=== PATIENT | female | born 1935 | race Caucasian/White ===

== ENCOUNTER → 2017-09-12 | Outpatient (CLI) | payer OTHER, SELFPAY ==
[~2017-09-12] MED LIST: ABAT250V; ACET325 PO; ALEN70 PO; AMLO10 PO; AMLO5 PO; AMOX500 PO; ASCO500 PO; ASPI81CH PO; Armour Thyroid15 MG PO; CALC.25 PO; CALCAVITD PO; CENTRUM COMPLE1 EACH PO; CILO100 PO; CITRACAL SOFT1 EACH PO; CLAR250 PO; Cipro500 MG PO; DOCU100 PO; FERR325 PO; FERSU90EL UD; FURO40 PO; Flagyl500 MG PO; HYDR10 PO; LOPE2C PO; MAGOXI400 PO; METO25ER PO; MOTION RELIEF25 MG PO; NIFE60ER PO; OMEPRAZOLE MAGN20 MG PO; ONDA4 PO; Omeprazole20 M1; Omeprazole20 M1 PO; PANT40 PO; PROBIOTIC; ROPI1 PO; SACC250C PO; SODBIC650 PO; Simvastatin40 MG PO; Synthroid25 MCG PO; VITAMIN D22000 UNIT PO; VITAMIN D35000 UNI1 PO; Vitamin B Comple1 EA PO
[2017-09-12 11:48] LABS: BASOPHILS ABSOLUTE AUTO 0.04 K/mm3 (0.00-0.23); BASOPHILS PERCENT AUTO 1 % (0-2); EOSINOPHILS ABSOLUTE AUTO 0.29 K/mm3 (0.00-0.68); EOSINOPHILS PERCENT AUTO 5 % (0-6); Hematocrit 32.5 % (33.0-51.0); Hemoglobin 10.6 g/dL (11.5-16.0); IMMATURE GRAN ABSOLUTE AUTO 0.01 K/mm3 (0.00-0.10); IMMATURE GRAN PERCENT AUTO 0 % (0-1); LYMPHOCYTES ABSOLUTE AUTO 0.57 K/mm3 (0.84-5.20); LYMPHOCYTES PERCENT AUTO 9 % (21-46); MONOCYTES ABSOLUTE AUTO 0.35 K/mm3 (0.16-1.47); MONOCYTES PERCENT AUTO 6 % (4-13); Mean Corpuscular HGB 30.8 pg (26.0-34.0); Mean Corpuscular HGB Conc 32.6 g/dL (31.5-36.5); Mean Corpuscular Volume 95 fL (80-100); Mean Platelet Volume 10.9 fL (9.1-12.4); NEUTROPHILS ABSOLUTE AUTO 5.14 K/mm3 (1.96-9.15); NEUTROPHILS PERCENT AUTO 80 % (41-73); Platelet Count 187 K/mm3 (150-400); RDW Coefficient Variation 14.4 % (11.7-14.2); RDW Standard Deviation 49.2 fL (35.1-46.3); Red Blood Cell Count 3.44 M/mm3 (3.80-5.20)
[2017-09-13 12:43] LABS: Percent Saturation 21.7 % (15.0-50.0)
== END | disposition home or self-care (01) ==
LOC: LAB EV 11:41
PROVIDERS: Physician Assistant
DX: D64.9 Anemia, unspecified (principal); R04.0 Epistaxis
CPT/HCPCS: 83540; 83550; 85025

== ENCOUNTER 2017-12-23 00:58 | Emergency (ER) | payer OTHER, SELFPAY ==
[~2017-12-23] VITALS: Ht 165.1 cm; Wt 59.0 kg
[~2017-12-23 00:58] MED LIST changes: -ABAT250V; -CALC.25 PO; -Cipro500 MG PO; -DOCU100 PO; -Flagyl500 MG PO; -HYDR10 PO; -LOPE2C PO; -METO25ER PO; -OMEPRAZOLE MAGN20 MG PO; -PROBIOTIC; -SACC250C PO; -VITAMIN D35000 UNI1 PO
[2017-12-23 02:28] LABS: BASOPHILS ABSOLUTE AUTO 0.03 K/mm3 (0.00-0.23); BASOPHILS PERCENT AUTO 0 % (0-2); EOSINOPHILS ABSOLUTE AUTO 0.11 K/mm3 (0.00-0.68); EOSINOPHILS PERCENT AUTO 1 % (0-6); Hematocrit 31.3 % (33.0-51.0); Hemoglobin 10.3 g/dL (11.5-16.0); IMMATURE GRAN PERCENT AUTO 1 % (0-1); LYMPHOCYTES ABSOLUTE AUTO 0.62 K/mm3 (0.84-5.20); LYMPHOCYTES PERCENT AUTO 6 % (21-46); MONOCYTES ABSOLUTE AUTO 0.55 K/mm3 (0.16-1.47); MONOCYTES PERCENT AUTO 5 % (4-13); Mean Corpuscular HGB 30.7 pg (26.0-34.0); Mean Corpuscular HGB Conc 32.9 g/dL (31.5-36.5); Mean Corpuscular Volume 93 fL (80-100); NEUTROPHILS ABSOLUTE AUTO 8.93 K/mm3 (1.96-9.15); NEUTROPHILS PERCENT AUTO 86 % (41-73); RDW Coefficient Variation 12.8 % (11.7-14.2); RDW Standard Deviation 43.4 fL (35.1-46.3); Red Blood Cell Count 3.36 M/mm3 (3.80-5.20); White Blood Cell Count 10.34 K/mm3 (4.00-11.30)
[2017-12-23 02:29] LABS: Mean Platelet Volume 11.9 fL (9.1-12.4); Platelet Count 147 K/mm3 (150-400)
[2017-12-23 03:23] LABS: Source, Urine Clean Catch
[2017-12-23 03:24] LABS: Bilirubin, Urine Neg (Neg); Blood, Urine 1+ (Neg); Glucose Qualitative, Urine Neg (Neg); Ketones, Urine Neg (Neg); Leukocyte Esterase, Urine Neg (Neg); Nitrite, Urine Neg (Neg); Protein, Urine 4+ (Neg); Urobilinogen, Urine NORM (Normal)
[2017-12-23 03:25] LABS: Appearance, Urine Clear (Clear); Color, Urine Yellow (P-Yellow)
[2017-12-23 03:42] LABS: Albumin, Blood 2.4 g/dL (3.4-5.0); Albumin/Globulin Ratio 0.6 (0.8-1.8); Bilirubin, Total 0.2 mg/dL (0.1-1.0); Bun/Creatinine Ratio 12.9 (12.0-20.0); Calcium, Blood 8.2 mg/dL (8.5-10.1); Creatinine, Blood 3.42 mg/dL (0.40-1.00); Potassium, Blood 4.4 mmol/L (3.5-5.5); Total Protein, Blood 6.4 g/dL (6.4-8.2)
[2017-12-23 03:44] LABS: Bacteria Not Seen /hpf; Red Blood Cells, Urine 0-2 /hpf (0-2); Squamous Epithelial Cells Few /hpf (Few); White Blood Cells, Urine 0-2 /hpf (0-5)
[2017-12-23] MEDS ORDERED: Flagyl500 MG PO (04:45)
[2017-12-23] MEDS ORDERED: Cipro500 MG PO (04:45)
== END 2017-12-23 06:09 | disposition home or self-care (01) ==
LOC: ER 00:58
PROVIDERS: Emergency Medicine
DX: K57.32 Diverticulitis of large intestine without perforation or abscess without bleeding (principal); Z79.899 Other long term (current) drug therapy; Z79.82 Long term (current) use of aspirin; I12.9 Hypertensive chronic kidney disease with stage 1 through stage 4 chronic kidney disease, or unspecified chronic kidney disease; N18.4 Chronic kidney disease, stage 4 (severe); D64.9 Anemia, unspecified
CPT/HCPCS: 74176; 80053; 81001; 83690; 85025; 93005; 93010; 96365; 96375; 99284; J0744

== ENCOUNTER 2018-02-16 13:44 | Inpatient (IN) | payer OTHER, SELFPAY ==
[~2018-02-16] VITALS: Ht 165.1 cm; Wt 57.6 kg
[~2018-02-16 13:44] MED LIST changes: +Cipro500 MG PO; +Flagyl500 MG PO
[2018-02-16 15:22] LABS: Albumin, Blood 2.1 g/dL (3.4-5.0); Albumin/Globulin Ratio 0.7 (0.8-1.8); Bilirubin, Total 0.1 mg/dL (0.1-1.0); Calcium, Blood 7.4 mg/dL (8.5-10.1); Creatinine, Blood 3.95 mg/dL (0.40-1.00); Globulin, Blood 3.2 g/dL (2.2-4.0); Potassium, Blood 4.3 mmol/L (3.5-5.5); Total Protein, Blood 5.3 g/dL (6.4-8.2); Troponin I 0.018 ng/mL (0.000-0.040)
[2018-02-16 15:45] LABS: BASOPHILS ABSOLUTE AUTO 0.03 K/mm3 (0.00-0.23); BASOPHILS PERCENT AUTO 0 % (0-2); EOSINOPHILS ABSOLUTE AUTO 0.15 K/mm3 (0.00-0.68); EOSINOPHILS PERCENT AUTO 2 % (0-6); Hematocrit 22.3 % (33.0-51.0); Hemoglobin 6.9 g/dL (11.5-16.0); IMMATURE GRAN ABSOLUTE AUTO 0.03 K/mm3 (0.00-0.10); IMMATURE GRAN PERCENT AUTO 0 % (0-1); LYMPHOCYTES ABSOLUTE AUTO 0.77 K/mm3 (0.84-5.20); LYMPHOCYTES PERCENT AUTO 8 % (21-46); MONOCYTES ABSOLUTE AUTO 0.31 K/mm3 (0.16-1.47); MONOCYTES PERCENT AUTO 3 % (4-13); Mean Corpuscular HGB 30.1 pg (26.0-34.0); Mean Corpuscular HGB Conc 30.9 g/dL (31.5-36.5); Mean Corpuscular Volume 97 fL (80-100); Mean Platelet Volume 10.8 fL (9.1-12.4); NEUTROPHILS ABSOLUTE AUTO 7.86 K/mm3 (1.96-9.15); NEUTROPHILS PERCENT AUTO 86 % (41-73); Platelet Count 186 K/mm3 (150-400); RDW Coefficient Variation 15.5 % (11.7-14.2); RDW Standard Deviation 53.8 fL (35.1-46.3); Red Blood Cell Count 2.29 M/mm3 (3.80-5.20); White Blood Cell Count 9.15 K/mm3 (4.00-11.30)
[2018-02-16] MEDS ORDERED: HYDR10 PO (19:35)
[2018-02-16] MEDS ORDERED: CALC.25 PO (19:36)
[2018-02-17 01:34] LABS: Hematocrit 22.2 % (33.0-51.0)
[2018-02-17 02:43] LABS: Adenovirus F 40/41 Not Detected (NOT DETECT); Astrovirus Not Detected (NOT DETECT); Campylobacter Sp Not Detected (NOT DETECT); Cryptosporidium Not Detected (NOT DETECT); Cyclospora Cayetanensis Not Detected (NOT DETECT); E. Coli O157 Not Detected (NOT DETECT); Entamoeba Histolytica Not Detected (NOT DETECT); Enteroaggregative E. coli-EAEC Not Detected (NOT DETECT); Enteropathogenic E. coli-EPEC Not Detected (NOT DETECT); Enterotoxigenic E. coli-ETEC Not Detected (NOT DETECT); Giardia Lamblia Not Detected (NOT DETECT); Norovirus GI/GII Not Detected (NOT DETECT); Plesiomonas Shigelloides Not Detected (NOT DETECT); Rotavirus A Not Detected (NOT DETECT); Salmonella Sp Not Detected (NOT DETECT); Sapovirus Not Detected (NOT DETECT); Shiga Toxin-prod E. coli-STEC Not Detected (NOT DETECT); Shigella/Enteroin E. coli-EIEC Not Detected (NOT DETECT); Vibrio Cholerae Not Detected (NOT DETECT); Vibrio Sp Not Detected (NOT DETECT); Yersinia Enterocolitica Not Detected (NOT DETECT)
[2018-02-17 02:48] LABS: Stool Occult Bld Immuno 1 Positive (NEGATIVE)
[2018-02-17 03:10] LABS: BASOPHILS ABSOLUTE AUTO 0.03 K/mm3 (0.00-0.23); BASOPHILS PERCENT AUTO 1 % (0-2); EOSINOPHILS ABSOLUTE AUTO 0.33 K/mm3 (0.00-0.68); EOSINOPHILS PERCENT AUTO 5 % (0-6); Hematocrit 20.3 % (33.0-51.0); Hemoglobin 6.6 g/dL (11.5-16.0); IMMATURE GRAN ABSOLUTE AUTO 0.03 K/mm3 (0.00-0.10); IMMATURE GRAN PERCENT AUTO 1 % (0-1); LYMPHOCYTES ABSOLUTE AUTO 1.16 K/mm3 (0.84-5.20); LYMPHOCYTES PERCENT AUTO 19 % (21-46); MONOCYTES PERCENT AUTO 6 % (4-13); Mean Corpuscular HGB 31.1 pg (26.0-34.0); Mean Corpuscular HGB Conc 32.5 g/dL (31.5-36.5); Mean Corpuscular Volume 96 fL (80-100); Mean Platelet Volume 10.5 fL (9.1-12.4); NEUTROPHILS ABSOLUTE AUTO 4.27 K/mm3 (1.96-9.15); NEUTROPHILS PERCENT AUTO 69 % (41-73); Platelet Count 143 K/mm3 (150-400); RDW Coefficient Variation 15.6 % (11.7-14.2); RDW Standard Deviation 51.7 fL (35.1-46.3); Red Blood Cell Count 2.12 M/mm3 (3.80-5.20); White Blood Cell Count 6.22 K/mm3 (4.00-11.30)
[2018-02-17 03:29] LABS: Bun/Creatinine Ratio 17.6 (12.0-20.0); Calcium, Blood 6.9 mg/dL (8.5-10.1); Creatinine, Blood 3.75 mg/dL (0.40-1.00); Troponin I 0.039 ng/mL (0.000-0.040)
[2018-02-17 08:28] LABS: Hematocrit 23.8 % (33.0-51.0); Hemoglobin 7.9 g/dL (11.5-16.0)
[2018-02-17] MEDS ORDERED: ABAT250V (23:08)
[2018-02-17] MEDS ORDERED: VITAMIN D35000 UNI1 PO (23:08)
[2018-02-17] MEDS ORDERED: PROBIOTIC (23:11)
[2018-02-18 04:18] LABS: BASOPHILS ABSOLUTE AUTO 0.02 K/mm3 (0.00-0.23); BASOPHILS PERCENT AUTO 1 % (0-2); EOSINOPHILS PERCENT AUTO 9 % (0-6); Hematocrit 23.5 % (33.0-51.0); Hemoglobin 7.8 g/dL (11.5-16.0); IMMATURE GRAN ABSOLUTE AUTO 0.01 K/mm3 (0.00-0.10); IMMATURE GRAN PERCENT AUTO 0 % (0-1); LYMPHOCYTES ABSOLUTE AUTO 0.72 K/mm3 (0.84-5.20); LYMPHOCYTES PERCENT AUTO 17 % (21-46); MONOCYTES ABSOLUTE AUTO 0.29 K/mm3 (0.16-1.47); MONOCYTES PERCENT AUTO 7 % (4-13); Mean Corpuscular HGB 31.2 pg (26.0-34.0); Mean Corpuscular HGB Conc 33.2 g/dL (31.5-36.5); Mean Corpuscular Volume 94 fL (80-100); Mean Platelet Volume 10.6 fL (9.1-12.4); NEUTROPHILS ABSOLUTE AUTO 2.91 K/mm3 (1.96-9.15); NEUTROPHILS PERCENT AUTO 67 % (41-73); Platelet Count 120 K/mm3 (150-400); RDW Coefficient Variation 16.8 % (11.7-14.2); RDW Standard Deviation 56.3 fL (35.1-46.3); White Blood Cell Count 4.35 K/mm3 (4.00-11.30)
[2018-02-18 16:22] LABS: Adenovirus F 40/41 Not Detected (NOT DETECT); Astrovirus Not Detected (NOT DETECT); Campylobacter Sp Not Detected (NOT DETECT); Cryptosporidium Not Detected (NOT DETECT); Cyclospora Cayetanensis Not Detected (NOT DETECT); E. Coli O157 Not Detected (NOT DETECT); Entamoeba Histolytica Not Detected (NOT DETECT); Enteroaggregative E. coli-EAEC Not Detected (NOT DETECT); Enteropathogenic E. coli-EPEC Not Detected (NOT DETECT); Enterotoxigenic E. coli-ETEC Not Detected (NOT DETECT); Giardia Lamblia Not Detected (NOT DETECT); Norovirus GI/GII Not Detected (NOT DETECT); Plesiomonas Shigelloides Not Detected (NOT DETECT); Rotavirus A Not Detected (NOT DETECT); Salmonella Sp Not Detected (NOT DETECT); Sapovirus Not Detected (NOT DETECT); Shiga Toxin-prod E. coli-STEC Not Detected (NOT DETECT); Shigella/Enteroin E. coli-EIEC Not Detected (NOT DETECT); Vibrio Cholerae Not Detected (NOT DETECT); Vibrio Sp Not Detected (NOT DETECT); Yersinia Enterocolitica Not Detected (NOT DETECT)
[2018-02-18] MEDS ORDERED: LOPE2C PO (18:28)
[2018-02-18] MEDS ORDERED: OMEPRAZOLE MAGN20 MG PO (18:29)
[2018-02-18] MEDS ORDERED: SACC250C PO (18:29)
== END 2018-02-18 19:07 | disposition home or self-care (01) | DRG 378 ==
LOC: ER 13:44 → PCU 13:45
PROVIDERS: Emergency Medicine; Internal Medicine; Internal Medicine Endocrinology, Diabetes & Metabolism; Internal Medicine Gastroenterology; Student in an Organized Health Care Education/Training Program
PROC: 30233N1 Transfusion of Nonautologous Red Blood Cells into Peripheral Vein, Percutaneous Approach (ICD-10-PCS; 2018-02-16)
PROC: 0W3P8ZZ Control Bleeding in Gastrointestinal Tract, Via Natural or Artificial Opening Endoscopic (ICD-10-PCS; principal; 2018-02-17 21:30)
DX: K25.0 Acute gastric ulcer with hemorrhage (principal); D62 Acute posthemorrhagic anemia; N18.4 Chronic kidney disease, stage 4 (severe); I12.9 Hypertensive chronic kidney disease with stage 1 through stage 4 chronic kidney disease, or unspecified chronic kidney disease; E03.9 Hypothyroidism, unspecified; R19.7 Diarrhea, unspecified; E78.5 Hyperlipidemia, unspecified; I73.9 Peripheral vascular disease, unspecified; M81.0 Age-related osteoporosis without current pathological fracture; K21.9 Gastro-esophageal reflux disease without esophagitis; Z66 Do not resuscitate
CPT/HCPCS: 36415; 36430; 74176; 80048; 80053; 82274; 84484; 85014; 85018; 85025; 86850; 86870; 86900; 86901; 86922; 87507; 93005; 93010; 96374; 96375; 99285-25; C1751; J2250; J2405; J2543; J3010; J7030; J7120; P9016

== ENCOUNTER 2018-06-30 05:41 | Emergency (ER) | payer OTHER ==
[~2018-06-30] VITALS: Ht 165.1 cm; Wt 52.2 kg
[~2018-06-30 05:41] MED LIST changes: +ABAT250V; +CALC.25 PO; +DOCU100 PO; +HYDR10 PO; +LOPE2C PO; +METO25ER PO; +OMEPRAZOLE MAGN20 MG PO; +PROBIOTIC; +SACC250C PO; +VITAMIN D35000 UNI1 PO
[2018-06-30 06:42] LABS: BASOPHILS ABSOLUTE AUTO 0.04 K/mm3 (0.00-0.23); BASOPHILS PERCENT AUTO 1 % (0-2); EOSINOPHILS ABSOLUTE AUTO 0.26 K/mm3 (0.00-0.68); EOSINOPHILS PERCENT AUTO 6 % (0-6); Hematocrit 33.7 % (33.0-51.0); Hemoglobin 10.5 g/dL (11.5-16.0); IMMATURE GRAN ABSOLUTE AUTO 0.01 K/mm3 (0.00-0.10); IMMATURE GRAN PERCENT AUTO 0 % (0-1); LYMPHOCYTES ABSOLUTE AUTO 0.66 K/mm3 (0.84-5.20); LYMPHOCYTES PERCENT AUTO 14 % (21-46); MONOCYTES ABSOLUTE AUTO 0.39 K/mm3 (0.16-1.47); MONOCYTES PERCENT AUTO 9 % (4-13); Mean Corpuscular HGB 29.2 pg (26.0-34.0); Mean Corpuscular HGB Conc 31.2 g/dL (31.5-36.5); Mean Corpuscular Volume 94 fL (80-100); Mean Platelet Volume 11.4 fL (9.1-12.4); NEUTROPHILS ABSOLUTE AUTO 3.22 K/mm3 (1.96-9.15); NEUTROPHILS PERCENT AUTO 70 % (41-73); Platelet Count 117 K/mm3 (150-400); RDW Coefficient Variation 14.4 % (11.7-14.2); RDW Standard Deviation 49.6 fL (35.1-46.3); White Blood Cell Count 4.58 K/mm3 (4.00-11.30)
[2018-06-30 07:54] LABS: Albumin, Blood 2.5 g/dL (3.4-5.0); Albumin/Globulin Ratio 0.7 (0.8-1.8); Bilirubin, Total 0.3 mg/dL (0.1-1.0); Bun/Creatinine Ratio 6.6 (12.0-20.0); Calcium, Blood 8.4 mg/dL (8.5-10.1); Creatinine, Blood 3.91 mg/dL (0.40-1.00); Globulin, Blood 3.8 g/dL (2.2-4.0); Potassium, Blood 4.5 mmol/L (3.5-5.5); Total Protein, Blood 6.3 g/dL (6.4-8.2)
[2018-06-30] MEDS ORDERED: Norco 5-325 Ta1 EACH PO (08:21)
== END 2018-06-30 08:38 | disposition home or self-care (01) ==
LOC: ER 05:41
PROVIDERS: Emergency Medicine
DX: N20.0 Calculus of kidney (principal); I12.9 Hypertensive chronic kidney disease with stage 1 through stage 4 chronic kidney disease, or unspecified chronic kidney disease; N18.6 End stage renal disease; Z99.2 Dependence on renal dialysis; D64.9 Anemia, unspecified; E03.9 Hypothyroidism, unspecified; Z87.891 Personal history of nicotine dependence; Z79.899 Other long term (current) drug therapy
CPT/HCPCS: 36415; 74176; 80053; 83690; 85025; 96361; 96374; 96375; 99284-25; J2405; J3010; J7030

== ENCOUNTER → 2018-07-29 | Outpatient (CLI) | payer OTHER ==
[~2018-07-29] MED LIST changes: +Norco 5-325 Ta1 EACH PO
== END ==
LOC: LAB SHORT 17:55 → LAB EV 17:55
DX: N39.0 Urinary tract infection, site not specified (principal)
CPT/HCPCS: 87077; 87086; 87186

== ENCOUNTER 2018-08-09 10:17 | Emergency (ER) | payer OTHER ==
[~2018-08-09] VITALS: Ht 165.1 cm; Wt 53.1 kg
[2018-08-09] MEDS ORDERED: HYDR10 PO (10:41)
[2018-08-09] MEDS ORDERED: CALC.25 PO (10:41)
[2018-08-09] MEDS ORDERED: FURO40 PO (10:42)
[2018-08-09 10:49] LABS: BASOPHILS ABSOLUTE AUTO 0.03 K/mm3 (0.00-0.23); BASOPHILS PERCENT AUTO 1 % (0-2); EOSINOPHILS PERCENT AUTO 2 % (0-6); Hematocrit 33.1 % (33.0-51.0); Hemoglobin 10.4 g/dL (11.5-16.0); IMMATURE GRAN ABSOLUTE AUTO 0.02 K/mm3 (0.00-0.10); IMMATURE GRAN PERCENT AUTO 0 % (0-1); LYMPHOCYTES ABSOLUTE AUTO 0.65 K/mm3 (0.84-5.20); LYMPHOCYTES PERCENT AUTO 10 % (21-46); MONOCYTES ABSOLUTE AUTO 0.32 K/mm3 (0.16-1.47); MONOCYTES PERCENT AUTO 5 % (4-13); Mean Corpuscular HGB 29.7 pg (26.0-34.0); Mean Corpuscular HGB Conc 31.4 g/dL (31.5-36.5); Mean Corpuscular Volume 95 fL (80-100); Mean Platelet Volume 11.3 fL (9.1-12.4); NEUTROPHILS ABSOLUTE AUTO 5.27 K/mm3 (1.96-9.15); NEUTROPHILS PERCENT AUTO 82 % (41-73); Platelet Count 157 K/mm3 (150-400); RDW Coefficient Variation 15.1 % (11.7-14.2); RDW Standard Deviation 52.1 fL (35.1-46.3); White Blood Cell Count 6.39 K/mm3 (4.00-11.30)
[2018-08-09 11:12] LABS: Albumin, Blood 2.8 g/dL (3.4-5.0); Albumin/Globulin Ratio 0.8 (0.8-1.8); Bilirubin, Total 0.3 mg/dL (0.1-1.0); Bun/Creatinine Ratio 7.5 (12.0-20.0); Calcium, Blood 8.6 mg/dL (8.5-10.1); Creatinine, Blood 2.8 mg/dL (0.40-1.00); Globulin, Blood 3.6 g/dL (2.2-4.0); Potassium, Blood 4.5 mmol/L (3.5-5.5); Total Protein, Blood 6.4 g/dL (6.4-8.2); Troponin I 0.122 ng/mL (0.000-0.040)
== END 2018-08-09 13:30 | disposition home or self-care (01) ==
LOC: ER 10:17
PROVIDERS: Emergency Medicine
DX: I35.0 Nonrheumatic aortic (valve) stenosis (principal); R06.02 Shortness of breath; J81.1 Chronic pulmonary edema; I12.9 Hypertensive chronic kidney disease with stage 1 through stage 4 chronic kidney disease, or unspecified chronic kidney disease; N18.9 Chronic kidney disease, unspecified; J44.9 Chronic obstructive pulmonary disease, unspecified; Z79.899 Other long term (current) drug therapy
CPT/HCPCS: 36415; 71046; 80053; 84484; 85025; 93005; 93010; 94640; 96374; 99285-25; J1940

== ENCOUNTER 2018-08-31 09:45 | Observation (INO) | payer OTHER ==
[~2018-08-31] VITALS: Ht 160 cm; Wt 50.7 kg
[2018-08-31 11:12] LABS: BASOPHILS ABSOLUTE AUTO 0.03 K/mm3 (0.00-0.23); BASOPHILS PERCENT AUTO 1 % (0-2); EOSINOPHILS PERCENT AUTO 2 % (0-6); Hematocrit 34.7 % (33.0-51.0); Hemoglobin 10.8 g/dL (11.5-16.0); IMMATURE GRAN ABSOLUTE AUTO 0.01 K/mm3 (0.00-0.10); IMMATURE GRAN PERCENT AUTO 0 % (0-1); LYMPHOCYTES ABSOLUTE AUTO 0.68 K/mm3 (0.84-5.20); LYMPHOCYTES PERCENT AUTO 13 % (21-46); MONOCYTES ABSOLUTE AUTO 0.29 K/mm3 (0.16-1.47); MONOCYTES PERCENT AUTO 6 % (4-13); Mean Corpuscular HGB 30.4 pg (26.0-34.0); Mean Corpuscular HGB Conc 31.1 g/dL (31.5-36.5); Mean Corpuscular Volume 98 fL (80-100); Mean Platelet Volume 11.3 fL (9.1-12.4); NEUTROPHILS ABSOLUTE AUTO 4.07 K/mm3 (1.96-9.15); NEUTROPHILS PERCENT AUTO 79 % (41-73); Platelet Count 162 K/mm3 (150-400); RDW Coefficient Variation 15.6 % (11.7-14.2); RDW Standard Deviation 55.8 fL (35.1-46.3); Red Blood Cell Count 3.55 M/mm3 (3.80-5.20); White Blood Cell Count 5.18 K/mm3 (4.00-11.30)
[2018-08-31 11:30] LABS: Albumin, Blood 3.3 g/dL (3.4-5.0); Albumin/Globulin Ratio 0.8 (0.8-1.8); Bilirubin, Total 0.5 mg/dL (0.1-1.0); Calcium, Blood 8.6 mg/dL (8.5-10.1); Creatinine, Blood 4.82 mg/dL (0.40-1.00); Globulin, Blood 3.9 g/dL (2.2-4.0); Potassium, Blood 4.4 mmol/L (3.5-5.5); Total Protein, Blood 7.2 g/dL (6.4-8.2); Troponin I 0.028 ng/mL (0.000-0.040)
[2018-08-31] MEDS ORDERED: [UNRECOGNIZED DRUG - CODE] PO (14:07)
[2018-08-31] MEDS ORDERED: CHOL10002 (14:23)
[2018-09-01 04:55] LABS: BASOPHILS ABSOLUTE AUTO 0.01 K/mm3 (0.00-0.23); BASOPHILS PERCENT AUTO 0 % (0-2); EOSINOPHILS ABSOLUTE AUTO 0.02 K/mm3 (0.00-0.68); EOSINOPHILS PERCENT AUTO 1 % (0-6); Hematocrit 34.4 % (33.0-51.0); Hemoglobin 10.2 g/dL (11.5-16.0); IMMATURE GRAN ABSOLUTE AUTO 0.01 K/mm3 (0.00-0.10); IMMATURE GRAN PERCENT AUTO 0 % (0-1); LYMPHOCYTES ABSOLUTE AUTO 0.41 K/mm3 (0.84-5.20); LYMPHOCYTES PERCENT AUTO 10 % (21-46); MONOCYTES ABSOLUTE AUTO 0.18 K/mm3 (0.16-1.47); MONOCYTES PERCENT AUTO 4 % (4-13); Mean Corpuscular HGB 29.7 pg (26.0-34.0); Mean Corpuscular HGB Conc 29.7 g/dL (31.5-36.5); Mean Corpuscular Volume 100 fL (80-100); Mean Platelet Volume 11.4 fL (9.1-12.4); NEUTROPHILS ABSOLUTE AUTO 3.44 K/mm3 (1.96-9.15); NEUTROPHILS PERCENT AUTO 85 % (41-73); Platelet Count 142 K/mm3 (150-400); RDW Coefficient Variation 15.7 % (11.7-14.2); Red Blood Cell Count 3.43 M/mm3 (3.80-5.20); White Blood Cell Count 4.07 K/mm3 (4.00-11.30)
--- NOTE | 2018-09-01 04:59 | NUR ---
*SHIFT SUMMARY* PATIENT ARRIVED TO FLOOR VIA STRETCHER ON ROOM AIR. STOOD AND TRANSFERED TO BED WITH SBA. PATIENT BECAME VERY SOB FROM EXERTION. OXYGEN SATURATIONS 90% APPLIED 2L OF NC, SATS INCREASED TO 94%. PATIENT STATES SHE HAS HAD A HARD TIME SLEEPING AT NIGHT LATELY BECAUSE OF SOB. LUNG SOUNDS FINE CRACKLES IN BASES. CALLED HOSPITALIST TO DC FLUIDS. NEW ORDER TO DC FLUIDS AND ONE TIME ORDER OF LASIX. PATIENT'S SOB DECREASED AND PATIENT SLEPT WELL THROUGHOUT THE NIGHT. BED LOWERED AND LOCKED WITH CALL LIGHT IN REACH. PATIENT HAS BEEN NPO SINCE MIDNIGHT FOR PERMA CATH REPLACEMENT.
[2018-09-01 05:10] LABS: International Normalized Ratio 0.99; Prothrombin Time Results 10.5 Sec (9.7-11.5)
[2018-09-01 05:15] LABS: Bun/Creatinine Ratio 10.7 (12.0-20.0); Calcium, Blood 8.4 mg/dL (8.5-10.1); Creatinine, Blood 4.76 mg/dL (0.40-1.00); Magnesium, Blood 2.5 mg/dL (1.6-2.4); Potassium, Blood 4.4 mmol/L (3.5-5.5)
--- NOTE | 2018-09-01 10:51 | NUR ---
History, Chart, Medications and Allergies reviewed before start of procedure. Patient confirms NPO status and agrees with scheduled surgery.
--- NOTE | 2018-09-01 10:53 | NUR ---
Chest wall prepped with 2% Chlorhexidine cloth wipe. Existing permacath intact to right chest wall.
--- NOTE | 2018-09-01 11:36 | NUR ---
at 1030 patient left for placement of perma cath via stretcher. she was given her metoprolol, held rest of morning meds. GAVE BRIEF REPORT TO DAY SURGERY RN. PATIENT HAD 2 DAUGHTERS AT BEDSIDE WHEN GOING OUT TO PROCEDURE.
--- NOTE | 2018-09-01 12:16 | NUR ---
09/01/18 1216 Geovanny Buck 2GM GIVEN @ 0369 IVPB IN R AC BY DR DARNELL
--- NOTE | 2018-09-01 13:35 | NUR ---
CONFIRMATION OF CHEST XRAY BY ANTOINETTE IN RADIOLOGY, PERMACATAmber IS GOOD AND NO PNEUMO.
--- NOTE | 2018-09-01 15:43 | NUR ---
PATIENT RETURNED FROM PERMA CATH PLACEMENT. DAUGHTERS AT BEDSIDE WITH PATIENT UPON RETURN. CURRENTLY RECIEVING DIALYSIS AT THE BEDSIDE. ABLE TO MAKE NEEDS KNOWN. CHATTING WITH DIALYSIS NURSE AT BEDSIDE. DAUGHTERS HAVE SINCE LEFT. NEW ORDERS PLACED POST PROCEDURE.
--- NOTE | 2018-09-01 18:45 | NUR ---
STUDENT PERMISSION PT GAVE THIS STUDENT VERBAL PERMISSION TO ASSIST IN HER CARE ON 09/02/18.
--- NOTE | 2018-09-01 19:18 | NUR ---
SHIFT SUMMARY PATIENT RECIEVED DIALYSIS TODAY. SHE HAS BEEN IN [facility] THIS EVENING. DIALYSIS AT BEDSIDE. PERM CATH PLACED, COVERED WITH DRESSING. DIALYSIS NURSE STATES SITE IS WN, NURSES WILL CONTINUE TO MONITOR FOR ANY CHANGE TO SITE.
[2018-09-02 04:47] LABS: BASOPHILS ABSOLUTE AUTO 0.02 K/mm3 (0.00-0.23); BASOPHILS PERCENT AUTO 0 % (0-2); EOSINOPHILS ABSOLUTE AUTO 0.15 K/mm3 (0.00-0.68); EOSINOPHILS PERCENT AUTO 3 % (0-6); Hematocrit 34.5 % (33.0-51.0); Hemoglobin 10.5 g/dL (11.5-16.0); IMMATURE GRAN ABSOLUTE AUTO 0.01 K/mm3 (0.00-0.10); IMMATURE GRAN PERCENT AUTO 0 % (0-1); LYMPHOCYTES PERCENT AUTO 16 % (21-46); MONOCYTES ABSOLUTE AUTO 0.43 K/mm3 (0.16-1.47); MONOCYTES PERCENT AUTO 9 % (4-13); Mean Corpuscular HGB 30.3 pg (26.0-34.0); Mean Corpuscular HGB Conc 30.4 g/dL (31.5-36.5); Mean Corpuscular Volume 99 fL (80-100); NEUTROPHILS ABSOLUTE AUTO 3.51 K/mm3 (1.96-9.15); NEUTROPHILS PERCENT AUTO 71 % (41-73); Platelet Count 142 K/mm3 (150-400); RDW Coefficient Variation 15.3 % (11.7-14.2); RDW Standard Deviation 56.1 fL (35.1-46.3); Red Blood Cell Count 3.47 M/mm3 (3.80-5.20); White Blood Cell Count 4.92 K/mm3 (4.00-11.30)
[2018-09-02 05:14] LABS: Albumin, Blood 2.8 g/dL (3.4-5.0); Anion Gap 10 mmol/L (6-16); Blood Urea Nitrogen 25 mg/dL (8-24); Bun/Creatinine Ratio 8.4 (12.0-20.0); CO2, Blood 24 mmol/L (21-32); Calcium, Blood 8.3 mg/dL (8.5-10.1); Chloride, Blood 99 mmol/L (98-108); Creatinine, Blood 2.97 mg/dL (0.40-1.00); Glomerular Filtration Rate 16 (60-); Glucose, Blood 83 mg/dL (70-99); Phosphorus, Blood 4.2 mg/dL (2.5-4.9); Potassium, Blood 4.3 mmol/L (3.5-5.5); Sodium, Blood 133 mmol/L (136-145)
--- NOTE | 2018-09-02 06:23 | NUR ---
*SHIFT SUMMARY* PATIENT IS ALERT AND ORIENTED. USES CALL LIGHT APPROPRIATELY. SLEPT WELL THROUGHOUT THE NIGHT. RESPIRATIONS EQUAL AND UNLABORED. DRESSING FROM PERMA CATH PLACEMENT YESTERDAY INTACT. PATIENT STATES SHE IS FEELING MUCH BETTER TODAY. VITALS STABLE. TELE ON. CALL LIGHT IN REACH, BED LOWERED AND LOCKED.
--- NOTE | 2018-09-02 10:55 | NUR ---
PATIENT LEFT FOR DIALYSIS VIA W/C AT 0900. CURRENTLY IN DIALYSIS.
[2018-09-02] MEDS ORDERED: AMLO10 PO (14:05)
[2018-09-02] MEDS ORDERED: FURO40 PO (14:06)
[2018-09-02] MEDS ORDERED: VITAMIN D5000 UNI1 PO (14:07)
[2018-09-02] MEDS ORDERED: ACET325 PO (14:08)
--- NOTE | 2018-09-02 15:36 | NUR ---
PATIENT DISCHARGED WITH SON IN LAW VIA W/C. IV REMOVED. NO ACUTE ISSUES NOTED.
== END 2018-09-02 15:30 | disposition home or self-care (01) ==
LOC: ER 09:45 → ERHOLD 09:46 → MEDS 09:46 → ERHOLD 09:46 → MEDS 18:49 → ENPENDDIS 09-02 10:30 → MEDS 09-02 15:30
PROVIDERS: Family Medicine; Physician Assistant; Surgery; ADMIT Family Medicine
PROC: 02HV33Z Insertion of Infusion Device into Superior Vena Cava, Percutaneous Approach (ICD-10-PCS; principal; 2018-09-01 11:30)
PROC: B548ZZA Ultrasonography of Superior Vena Cava, Guidance (ICD-10-PCS; principal; 2018-09-01 11:30)
PROC: B518YZA Fluoroscopy of Superior Vena Cava using Other Contrast, Guidance (ICD-10-PCS; principal; 2018-09-01 11:30)
PROC: 0JPT3WZ Removal of Totally Implantable Vascular Access Device from Trunk Subcutaneous Tissue and Fascia, Percutaneous Approach (ICD-10-PCS; principal; 2018-09-01 11:30)
PROC: 0JH63XZ Insertion of Tunneled Vascular Access Device into Chest Subcutaneous Tissue and Fascia, Percutaneous Approach (ICD-10-PCS; principal; 2018-09-01 11:30)
DX: T82.42XA Displacement of vascular dialysis catheter, initial encounter (principal); I13.2 Hypertensive heart and chronic kidney disease with heart failure and with stage 5 chronic kidney disease, or end stage renal disease; N18.6 End stage renal disease; I50.33 Acute on chronic diastolic (congestive) heart failure; D50.9 Iron deficiency anemia, unspecified; I35.0 Nonrheumatic aortic (valve) stenosis; E03.9 Hypothyroidism, unspecified; E78.5 Hyperlipidemia, unspecified; Z87.891 Personal history of nicotine dependence; Z79.899 Other long term (current) drug therapy; Z99.2 Dependence on renal dialysis
CPT/HCPCS: 36415; 71046; 77001; 80048; 80053; 80069; 83735; 84484; 85025; 85610; 85730; 93005; 93010; 94761; 96361; 96372; 96374; 96375; 99285-25; C1750; G0257; G0378; J0690; J1644; J1940; J2250; J3010; J7030

== ENCOUNTER 2018-10-28 13:23 | Inpatient (IN) | payer OTHER ==
[~2018-10-28] VITALS: Ht 165.1 cm; Wt 51.3 kg
[~2018-10-28 13:23] MED LIST changes: +CHOL10002; +VITAMIN D350000 UNIT PO; +[UNRECOGNIZED DRUG - CODE] PO
[2018-10-28 14:30] LABS: BASOPHILS ABSOLUTE AUTO 0.03 K/mm3 (0.00-0.23); BASOPHILS PERCENT AUTO 0 % (0-2); EOSINOPHILS ABSOLUTE AUTO 0.04 K/mm3 (0.00-0.68); EOSINOPHILS PERCENT AUTO 0 % (0-6); Hematocrit 35.2 % (33.0-51.0); Hemoglobin 10.9 g/dL (11.5-16.0); IMMATURE GRAN ABSOLUTE AUTO 0.03 K/mm3 (0.00-0.10); IMMATURE GRAN PERCENT AUTO 0 % (0-1); LYMPHOCYTES ABSOLUTE AUTO 0.27 K/mm3 (0.84-5.20); LYMPHOCYTES PERCENT AUTO 3 % (21-46); MONOCYTES ABSOLUTE AUTO 0.48 K/mm3 (0.16-1.47); MONOCYTES PERCENT AUTO 5 % (4-13); Mean Corpuscular HGB 29.8 pg (26.0-34.0); Mean Corpuscular Volume 96 fL (80-100); Mean Platelet Volume 11.6 fL (9.1-12.4); NEUTROPHILS PERCENT AUTO 91 % (41-73); Platelet Count 183 K/mm3 (150-400); RDW Coefficient Variation 14.6 % (11.7-14.2); RDW Standard Deviation 50.9 fL (35.1-46.3); Red Blood Cell Count 3.66 M/mm3 (3.80-5.20); White Blood Cell Count 9.35 K/mm3 (4.00-11.30)
[2018-10-28] MEDS ORDERED: Hydralazine HCl10 MG PO (14:52)
[2018-10-28 14:53] LABS: Albumin, Blood 2.3 g/dL (3.4-5.0); Albumin/Globulin Ratio 0.6 (0.8-1.8); Bilirubin, Total 0.6 mg/dL (0.1-1.0); Bun/Creatinine Ratio 11.2 (12.0-20.0); Calcium, Blood 7.9 mg/dL (8.5-10.1); Creatinine, Blood 2.51 mg/dL (0.40-1.00); Globulin, Blood 4.1 g/dL (2.2-4.0); Potassium, Blood 5.5 mmol/L (3.5-5.5); Total Protein, Blood 6.4 g/dL (6.4-8.2); Troponin I 0.025 ng/mL (0.000-0.040)
--- NOTE | 2018-10-28 17:19 | NUR ---
Echocardiogram completed.
[2018-10-29 05:42] LABS: BASOPHILS ABSOLUTE AUTO 0.03 K/mm3 (0.00-0.23); BASOPHILS PERCENT AUTO 1 % (0-2); EOSINOPHILS ABSOLUTE AUTO 0.09 K/mm3 (0.00-0.68); EOSINOPHILS PERCENT AUTO 2 % (0-6); Hemoglobin 9.4 g/dL (11.5-16.0); IMMATURE GRAN ABSOLUTE AUTO 0.01 K/mm3 (0.00-0.10); IMMATURE GRAN PERCENT AUTO 0 % (0-1); LYMPHOCYTES ABSOLUTE AUTO 0.56 K/mm3 (0.84-5.20); LYMPHOCYTES PERCENT AUTO 10 % (21-46); MONOCYTES ABSOLUTE AUTO 0.56 K/mm3 (0.16-1.47); MONOCYTES PERCENT AUTO 10 % (4-13); Mean Corpuscular HGB 29.4 pg (26.0-34.0); Mean Corpuscular HGB Conc 31.3 g/dL (31.5-36.5); Mean Corpuscular Volume 94 fL (80-100); Mean Platelet Volume 11.1 fL (9.1-12.4); NEUTROPHILS ABSOLUTE AUTO 4.29 K/mm3 (1.96-9.15); NEUTROPHILS PERCENT AUTO 78 % (41-73); Platelet Count 171 K/mm3 (150-400); RDW Coefficient Variation 14.5 % (11.7-14.2); RDW Standard Deviation 49.2 fL (35.1-46.3); White Blood Cell Count 5.54 K/mm3 (4.00-11.30)
[2018-10-29 06:11] LABS: Albumin, Blood 2.2 g/dL (3.4-5.0); Albumin/Globulin Ratio 0.6 (0.8-1.8); Bilirubin, Total 0.5 mg/dL (0.1-1.0); Bun/Creatinine Ratio 10.3 (12.0-20.0); Calcium, Blood 8.4 mg/dL (8.5-10.1); Creatinine, Blood 3.31 mg/dL (0.40-1.00); Globulin, Blood 3.6 g/dL (2.2-4.0); Total Protein, Blood 5.8 g/dL (6.4-8.2); Troponin I 0.028 ng/mL (0.000-0.040)
--- NOTE | 2018-10-29 06:13 | NUR ---
*SHIFT SUMMARY* PATIENT IS ALERT AND SLEPT OFF AND ON THROUGHOUT THE NIGHT. PT COMPLAINED OF PAIN IN BACK. MEDICATED ORDERED. PATIENT WOKE UP AROUND 0100 AND DANGLED AT BEDSIDE THEN BACK TO BED. VITALS STABLE, BP SLIGHTLY LOW HELD PM BP MEDS. NO NEW CHANGES
--- NOTE | 2018-10-29 09:27 | NUR ---
PT IN DIALYSIS AT 0900
[2018-10-29] MEDS ORDERED: ACET325 PO (11:14)
[2018-10-29] MEDS ORDERED: Nitroglycerin0.4 MG SL (11:16)
[2018-10-29] MEDS ORDERED: SENN187 PO (11:17)
--- NOTE | 2018-10-29 16:52 | NUR ---
PT DISCHARGED AT 1650. FAMILY WHEELED PT DOWNSTAIRS.
--- NOTE | 2018-10-29 18:52 | NUR ---
Pt was in the process of being discharged. she is surrounded by loving and supportive family. She is clearly loved. Mrs. Miller appears quite frail, but smiles easily and engaged well. She asked me to pray for continued healing. I was happy to do so. Family prayed as well. No concerns presented.
== END 2018-10-29 16:51 | disposition home or self-care (01) | DRG 291 ==
LOC: ER 13:23 → MEDS 16:00 → ENPENDDIS 10-29 10:26 → MEDS 10-29 16:51
PROVIDERS: Emergency Medicine; ADMIT Family Medicine
DX: I13.2 Hypertensive heart and chronic kidney disease with heart failure and with stage 5 chronic kidney disease, or end stage renal disease (principal); N18.6 End stage renal disease; J96.01 Acute respiratory failure with hypoxia; I50.9 Heart failure, unspecified; Z99.2 Dependence on renal dialysis; Z51.5 Encounter for palliative care; I42.9 Cardiomyopathy, unspecified; I27.20 Pulmonary hypertension, unspecified; I08.2 Rheumatic disorders of both aortic and tricuspid valves; E78.5 Hyperlipidemia, unspecified; E03.9 Hypothyroidism, unspecified; Z90.5 Acquired absence of kidney; Z66 Do not resuscitate; K21.9 Gastro-esophageal reflux disease without esophagitis
CPT/HCPCS: 36415; 71046; 80053; 82947; 83880; 84484; 85025; 93005; 93010; 93306; 94761; 99285-25; J1650; J2270